=== PATIENT | male | born 1985 | race Two or more races ===

== ENCOUNTER → 2018-10-21 | Outpatient (CLI) | payer OTHER ==
--- NOTE | 2018-10-21 15:40 | KCIC ---
EXAM: Left knee, 3 views. HISTORY: Pain. COMPARISON: None. FINDINGS: 3 views left knee are obtained. There is no fracture, dislocation or subluxation. There is minimal lateral compartment spurring and vacuum phenomenon. There is minimal patellar spurring. There is no joint effusion IMPRESSION: 1. Minimal lateral and patellofemoral compartment spurring and lateral compartment vacuum phenomenon. 2. No acute osseous finding. Electronically signed by: Cheri Reyes MD (10/21/2018 3:37 PM) [id number]
== END | disposition home or self-care (01) ==
LOC: KCIC 14:38
PROVIDERS: ATTEND Family Medicine
DX: S89.92XA Unspecified injury of left lower leg, initial encounter (principal); X58.XXXA Exposure to other specified factors, initial encounter; Y93.89 Activity, other specified; Y92.89 Other specified places as the place of occurrence of the external cause; Y99.8 Other external cause status
CPT/HCPCS: 73562